=== PATIENT | female | born 1985 | race African-American/Black ===

== ENCOUNTER 2020-01-31 19:56 | Emergency (ER) | payer MEDICAID ==
[~2020-01-31] VITALS: Ht 175.3 cm; Wt 68.0 kg
[2020-01-31] MEDS ORDERED: ACETAMINOPHEN 325MG TABLET PO ONE (20:45)
[2020-01-31 21:08] LABS: BASOPHILS % 0.5 % (0.0-2.0); HEMATOCRIT. 35.3 % (36.0-48.0); HEMOGLOBIN. 11.8 g/dL (12.0-16.0); LYMPHOCYTES % 8.1 % (20.0-50.0); MEAN CORPUSCULAR HEMOGLOBIN 30.1 pg (28.0-32.0); MEAN CORPUSCULAR VOLUME 89.6 fL (81.0-99.0); MEAN PLATELET VOLUME 6.9 fl (7.4-10.4); MONOCYTES % 2.8 % (2.0-8.0); NEUTROPHILS % 88.6 % (40.0-76.0); PLATELET 315 x1000/uL (130-400); RED BLOOD CELL COUNT 3.93 mill/uL (4.2-5.4); RED CELL DISTRIBUTION WIDTH 12.6 % (11.6-14.6)
[2020-01-31 21:17] LABS: CHLORIDE 103 mEq/L (98-107)
[2020-01-31 21:23] LABS: ETHANOL BLOOD < 10 mg/dL
[2020-01-31 21:26] LABS: CREATINE KINASE 233 IU/L (26-192)
[2020-01-31] MEDS ORDERED: IBUPROFEN 600MG TABLET PO ONE (21:45)
[2020-01-31] MEDS ORDERED: POTASSIUM CHLORIDE 20MEQ/PACKET PO ONE (23:15)
[2020-01-31] MEDS ORDERED: MAGNESIUM/ALUMINUM HYDROXIDE/SIMETHICONE 30ML UDC PO ONE (23:15)
[2020-01-31] MEDS ORDERED: KETOROLAC 60MG/2ML VIAL IM ONE (23:15)
[2020-01-31 23:19] LABS: HCG SCREEN NEGATIVE
[2020-02-01] MEDS ORDERED: ONDANSETRON 4MG ODT PO ONE (01:15)
[2020-02-01] MEDS ORDERED: HALOPERIDOL LACTATE 5MG/ML VIAL IM ONE (01:30)
[2020-02-01 03:00] VITALS: BP 108/63
== END 2020-02-01 03:26 | disposition home or self-care (01) ==
LOC: ER 20:03
DX: R10.13 Epigastric pain (principal); E87.6 Hypokalemia; M79.18 Myalgia, other site
CPT/HCPCS: 36415; 74176; 80053; 80307; 80320; 80329; 82550; 83690; 84703; 85025; 93005; 96372; 99285; J1630; J1885; Q0162; G0480

== ENCOUNTER 2021-04-09 03:24 | Emergency (ER) | payer SELFPAY ==
[~2021-04-09] VITALS: Ht 167.6 cm; Wt 66.0 kg
[2021-04-09] MEDS ORDERED: FAMOTIDINE 20MG/2ML VIAL IV STA (03:50)
[2021-04-09] MEDS ORDERED: MORPHINE SULFATE 4 MG/ML CPJ (NOT FOR IM USE) IV STA (03:50)
[2021-04-09] MEDS ORDERED: ONDANSETRON HCL 4MG/2ML INJ IV STA (03:50)
[2021-04-09] MEDS ORDERED: SODIUM CHLORIDE 0.9% 1,000 ML IV ONE (04:00)
[2021-04-09] MEDS ORDERED: MORPHINE SULFATE 2 MG/ML CPJ (NOT FOR IM USE) IV SCH (04:30)
[2021-04-09 04:58] LABS: EOSINOPHILS % 0.3 % (0.0-5.0); HEMATOCRIT. 37.7 % (36.0-48.0); HEMOGLOBIN. 12.7 g/dL (12.0-16.0); LYMPHOCYTES % 17.7 % (20.0-50.0); MEAN CORPUSCULAR HEMOGLOBIN 29.9 pg (28.0-32.0); MEAN CORPUSCULAR VOLUME 88.5 fL (81.0-99.0); MEAN PLATELET VOLUME 7.4 fl (7.4-10.4); MONOCYTES % 3.8 % (2.0-8.0); NEUTROPHILS % 77.2 % (40.0-76.0); PLATELET 367 x1000/uL (130-400); RED BLOOD CELL COUNT 4.26 mill/uL (4.2-5.4); RED CELL DISTRIBUTION WIDTH 13.1 % (11.6-14.6)
[2021-04-09 05:02] LABS: CLARITY URINE CLOUDY (CLEAR); COLOR URINE YELLOW (YELLOW); KETONES URINE 1+ (NEGATIVE); LEUKOCYTE ESTERASE URINE 1+ (NEGATIVE); NITRITE URINE NEGATIVE (NEGATIVE); OCCULT BLOOD URINE TRACE (NEGATIVE); PH URINE >=9.0 (4.5-8.0); PROTEIN URINE 2+ (NEGATIVE); SPECIFIC GRAVITY URINE 1.028 (1.005-1.030)
[2021-04-09 05:16] LABS: HCG SCREEN NEGATIVE
[2021-04-09 05:24] LABS: CHLORIDE 107 mEq/L (98-107)
[2021-04-09] MEDS ORDERED: FAMO-135 MT (05:28)
[2021-04-09 05:32] LABS: PROTHROMBIN TIME 11.2 sec (9.6-11.0)
[2021-04-09 05:48] LABS: *AMPHETAMINES SCREEN URINE NEGATIVE (NEGATIVE); *BARBITURATES SCREEN URINE NEGATIVE (NEGATIVE); *BENZODIAZEPINES SCREEN URINE NEGATIVE (NEGATIVE); *COCAINE SCREEN URINE NEGATIVE (NEGATIVE); METHADONE URINE SCREEN NEGATIVE (NEGATIVE); OPIATES URINE SCREEN NEGATIVE (NEGATIVE); PHENCYCLIDINE URINE SCREEN NEGATIVE (NEGATIVE)
[2021-04-09] MEDS ORDERED: DICYCLOMINE 10 MG/5 ML ORAL SYR PO STA (05:56)
[2021-04-09] MEDS ORDERED: MAGNESIUM/ALUMINUM HYDROXIDE/SIMETHICONE 30ML UDC PO STA (05:56)
[2021-04-09] MEDS ORDERED: VISCOUS LIDOCAINE 2% 15 ML UDC PO STA (05:56)
[2021-04-09] MEDS ORDERED: MORPHINE SULFATE 2 MG/ML CPJ (NOT FOR IM USE) IV ONE (06:00)
[2021-04-09 06:27] LABS: CANNABINOID URINE SCREEN PRESUMTIVE POSITIVE (NEGATIVE)
[2021-04-09 06:44] VITALS: BP 124/73
== END 2021-04-09 06:45 | disposition home or self-care (01) ==
LOC: ER 03:32
DX: R10.13 Epigastric pain (principal); R11.2 Nausea with vomiting, unspecified; R19.7 Diarrhea, unspecified; R03.0 Elevated blood-pressure reading, without diagnosis of hypertension; Z87.19 Personal history of other diseases of the digestive system
CPT/HCPCS: 36415; 80053; 80305; 81003; 81025; 83690; 84703; 85025; 85610; 96361; 96374; 96375; 99284; J2270; J2405; J3490; J7030

== ENCOUNTER 2024-06-01 01:33 | Emergency (ER) | payer SELFPAY ==
[~2024-06-01] VITALS: Ht 170.2 cm; Wt 66.0 kg
[~2024-06-01 01:33] MED LIST: FAMO-135 MT
[2024-06-01 01:49] VITALS: O2SAT 100
[2024-06-01] MEDS: KETOROLAC 15MG/ML VIAL IM ONE (02:40)
[2024-06-01] MEDS ORDERED: NAPR-1176 MT (03:55)
[2024-06-01] MEDS ORDERED: LIDO700A15 TP (03:55)
[2024-06-01 04:05] VITALS: BP 127/76; PULSE 52; RESP 16; TEMP 36.83628; O2SAT 100
== END 2024-06-01 04:06 | disposition home or self-care (01) ==
LOC: ER 01:33
DX: R51.9 Headache, unspecified (principal); M25.512 Pain in left shoulder; V49.9XXA Car occupant (driver) (passenger) injured in unspecified traffic accident, initial encounter; Y93.89 Activity, other specified; Y92.89 Other specified places as the place of occurrence of the external cause; Y99.8 Other external cause status
CPT/HCPCS: 99284; 81025; 73503; 73030; 96372; J1885

== ENCOUNTER 2024-07-11 16:04 | Emergency (ER) | payer SELFPAY ==
[~2024-07-11] VITALS: Ht 165.1 cm; Wt 65.0 kg
[~2024-07-11 16:04] MED LIST changes: +LIDO700A15 TP; +NAPR-1176 MT
[2024-07-11 16:09] VITALS: BP 140/91; PULSE 74; RESP 16; O2SAT 100
[2024-07-11] MEDS: ONDANSETRON HCL 4MG/2ML INJ IV ONE (17:03)
[2024-07-11] MEDS: SODIUM CHLORIDE 0.9% 1,000 ML IV ONE (17:03)
[2024-07-11 17:57] LABS: BASOPHILS % 0.6 % (0.0-2.0); HEMOGLOBIN. 12.1 g/dL (12.0-16.0); LYMPHOCYTES % 7.7 % (20.0-50.0); MEAN CORPUSCULAR HEMOGLOBIN 29.7 pg (28.0-32.0); MEAN CORPUSCULAR HGB CONC 32.6 g/dL (31.0-37.0); MEAN CORPUSCULAR VOLUME 91.2 fL (81.0-99.0); MEAN PLATELET VOLUME 7.1 fl (7.4-10.4); MONOCYTES % 4.8 % (2.0-8.0); NEUTROPHILS % 86.9 % (40.0-76.0); PLATELET 399 x1000/uL (130-400); RED BLOOD CELL COUNT 4.05 mill/uL (4.2-5.4); RED CELL DISTRIBUTION WIDTH 13.2 % (11.6-14.6); WHITE BLOOD COUNT 12.4 x1000/uL (4.5-11.0)
[2024-07-11 18:03] LABS: CHLORIDE 109 mEq/L (98-107); POTASSIUM 3.6 mEq/L (3.5-5.1); SODIUM 144 mEq/L (136-145)
[2024-07-11 18:04] LABS: CARBON DIOXIDE 23 mEq/L (21-32)
[2024-07-11 18:09] LABS: CREATININE 1.1 mg/dL (0.6-1.0)
[2024-07-11 18:10] LABS: GLUCOSE 113 mg/dL (70-105); UREA NITROGEN BLOOD 16 mg/dL (9-23)
[2024-07-11 18:52] VITALS: TEMP 98.5
[2024-07-11] MEDS: ACETAMINOPHEN 325MG TABLET PO ONE (18:52)
[2024-07-11] MEDS: MAGNESIUM/ALUMINUM HYDROXIDE/SIMETHICONE 30ML UDC PO ONE (18:52)
[2024-07-11] MEDS ORDERED: DIPHENOXYLATE/ATROPINE 2.5/0.025MG TABLET PO ONE (19:30)
[2024-07-11] MEDS ORDERED: ONDA4TAB50 MT (20:22)
[2024-07-11] MEDS ORDERED: IBUP-1523 MT (20:22)
[2024-07-11] MEDS ORDERED: DIPH-1091 MT (20:22)
[2024-07-11] MEDS ORDERED: TOPUD MT (20:22)
== END 2024-07-11 21:18 | disposition home or self-care (01) ==
LOC: ER 16:04
DX: K52.9 Noninfective gastroenteritis and colitis, unspecified (principal); Z79.1 Long term (current) use of non-steroidal anti-inflammatories (NSAID); Z87.19 Personal history of other diseases of the digestive system
CPT/HCPCS: 80048; 85025; 36415; 96361; 96374; 99283; J2405; J7030; Z7610